=== PATIENT | male | born 1950 | race Caucasian/White ===

== ENCOUNTER 2023-07-22 07:45 | Outpatient (CLI) | payer MEDICARE, SELFPAY ==
--- NOTE | 2023-07-22 09:20 | W.ANESCHARGE ---
Anesthesia Charges Start Date/Time Anesthesia Start Date: 07/22/23 Anesthesia Start Time: 08:51 Stop Date/Time Anesthesia Stop Date: 07/22/23 Anesthesia Stop Time: 09:19 Summary Extremes of Age - Over 70 or under 1: [employer]PER[employer]
--- NOTE | 2023-07-22 10:06 | W.ANESCHARGE ---
Anesthesia Charges Start Date/Time Anesthesia Start Date: 07/22/23 Anesthesia Start Time: 08:51 Stop Date/Time Anesthesia Stop Date: 07/22/23 Anesthesia Stop Time: 09:19 Summary Extremes of Age - Over 70 or under 1: MDA
== END 2023-07-22 07:46 | disposition home or self-care (01) ==
LOC: OP CLINIC 07:49
PROVIDERS: PCP Surgery; Visit Provider Internal Medicine Gastroenterology
DX: Z12.11 Encounter for screening for malignant neoplasm of colon (principal); K63.5 Polyp of colon; K57.30 Diverticulosis of large intestine without perforation or abscess without bleeding; Z86.010 Personal history of colon polyps
CPT/HCPCS: 00811; 45385; 88305; 99100; J2704